=== PATIENT | male | born 1995 | race Caucasian/White ===

== ENCOUNTER 2019-03-12 19:42 | Emergency (ER) | payer OTHER ==
[~2019-03-12] VITALS: Ht 185.4 cm; Wt 81.7 kg
[2019-03-12] MEDS ORDERED: IBUP800 PO (19:50)
== END 2019-03-12 21:14 | disposition home or self-care (01) ==
LOC: ER 19:42
DX: M25.562 Pain in left knee (principal); M25.862 Other specified joint disorders, left knee; Z87.891 Personal history of nicotine dependence
CPT/HCPCS: 73562-LT; 99283-25

== ENCOUNTER 2019-03-14 22:39 | Emergency (ER) | payer OTHER ==
[~2019-03-14] VITALS: Ht 185.4 cm; Wt 77.1 kg
[~2019-03-14 22:39] MED LIST: IBUP800 PO
[2019-03-14] MEDS ORDERED: CYCL10 PO (23:53)
== END 2019-03-15 00:28 | disposition home or self-care (01) ==
LOC: ER 22:39
DX: M76.52 Patellar tendinitis, left knee (principal)
CPT/HCPCS: 99283

== ENCOUNTER 2019-04-28 08:36 | Emergency (ER) | payer OTHER ==
[~2019-04-28] VITALS: Ht 185.4 cm; Wt 77.1 kg
[~2019-04-28 08:36] MED LIST changes: +CYCL10 PO
[2019-04-28] MEDS ORDERED: ALBU90OI INH (09:37)
[2019-04-28] MEDS ORDERED: Sudogest30 MG PO (09:37)
[2019-04-28] MEDS ORDERED: BENZ100A PO (09:37)
[2019-04-28] MEDS ORDERED: Nasonex17 GM (09:37)
== END 2019-04-28 11:19 | disposition home or self-care (01) ==
LOC: ER 08:36
DX: J06.9 Acute upper respiratory infection, unspecified (principal); F17.290 Nicotine dependence, other tobacco product, uncomplicated
CPT/HCPCS: 71046; 94640; 94644; 94664; 99283-25; J7512

== ENCOUNTER → 2020-05-24 | Outpatient (CLI) | payer OTHER ==
[~2020-05-24] MED LIST changes: +ALBU90OI INH; +AMOCLA875 PO; +BENZ100A PO; +NICO2 PO; +Nasonex17 GM; +PRED10 PO; +PRED20 PO; +Sudogest30 MG PO
[2020-05-27 14:09] LABS: CORONAVIRUS (COVID19) CSH-NRL Negative (Negative)
== END | disposition home or self-care (01) ==
LOC: LAB 13:09 → LAB SHORT 13:09
PROVIDERS: Chiropractor
DX: Z20.828 Contact with and (suspected) exposure to other viral communicable diseases (principal)
CPT/HCPCS: U0003

== ENCOUNTER 2021-03-01 19:46 | Emergency (ER) | payer OTHER ==
[~2021-03-01] VITALS: Ht 185.4 cm; Wt 74.8 kg
[2021-03-01] MEDS ORDERED: TERB250 PO (19:59)
== END 2021-03-01 20:31 | disposition home or self-care (01) ==
LOC: ER 19:46
DX: B35.3 Tinea pedis (principal); J45.909 Unspecified asthma, uncomplicated; F17.290 Nicotine dependence, other tobacco product, uncomplicated; Z79.899 Other long term (current) drug therapy
CPT/HCPCS: 99283

== ENCOUNTER 2021-06-12 14:39 | Emergency (ER) | payer OTHER ==
[~2021-06-12] VITALS: Ht 185.4 cm; Wt 91.6 kg
[~2021-06-12 14:39] MED LIST changes: +TERB250 PO
== END 2021-06-12 14:54 | disposition home or self-care (01) ==
LOC: ER 14:39
DX: J06.9 Acute upper respiratory infection, unspecified (principal); J45.909 Unspecified asthma, uncomplicated; F17.290 Nicotine dependence, other tobacco product, uncomplicated
CPT/HCPCS: 99282